=== PATIENT | female | born 1985 | race Hispanic/Latino ===

== ENCOUNTER 2018-11-05 05:15 | Inpatient (IN) | payer SELFPAY ==
[2018-11-05 05:47] VITALS: BMI 30.9
[2018-11-05 06:11] LABS: Amnisure Internal Control QC ACCEPTABLE (ACCEPTABLE)
[2018-11-05 06:13] LABS: Amnisure Test RUPTURE DETECTED (No Rupture)
[2018-11-05] MEDS ORDERED: Lidocaine 1% (PF) 30 ML VIAL SC PRN (06:23)
[2018-11-05] MEDS ORDERED: Diphenoxylate HCl/Atropine Tablet PO PRN ×2 (06:23)
[2018-11-05] MEDS ORDERED: Misoprostol 200 MCG TAB PR PRN (06:23)
[2018-11-05] MEDS ORDERED: Acetaminophen 500 MG TAB PO PRN (06:23)
[2018-11-05] MEDS ORDERED: Carboprost 250 MCG/ML AMP IM PRN (06:23)
[2018-11-05] MEDS ORDERED: Butorphanol Tartrate 1 MG/ML VIAL SLOW IVP PRN (06:23)
[2018-11-05] MEDS ORDERED: Methylergonovine 0.2 MG/ML VIAL IM PRN (06:23)
[2018-11-05] MEDS ORDERED: NS / Oxytocin 40 units/1000ml 1,000 ML IV PRN ×2 (06:23→13:31)
[2018-11-05] MEDS ORDERED: Promethazine HCl 25 MG/ML VIAL IM PRN ×2 (06:23→11:03)
[2018-11-05] MEDS ORDERED: Ondansetron PF 4 MG/2 ML Vial IVP PRN ×2 (06:23→11:03)
[2018-11-05] MEDS ORDERED: NS w/ Oxytocin 10 units 500 ML IV SCH ×2 (06:30)
--- NOTE | 2018-11-05 06:42 | PDOC.FPROB ---
FMR OB H&P: HPI - History of Present Illness Chief Complaint: LOF and contraction Indentification: History of Present Illness: 33YO @ 38 weeks by 13.2 week sono c/w LMP who presented to L&D with a chief complaint of leakage of fluid that she reports woke her from sleep at approximately 0420 today. She reports that she woke up feeling a large amount of fluid leaking from her vagina. She also noticed some thin white discharge and reports irregular, mild contractions. The patient reports regular movement and denies any vaginal bleeding, pain, or pressure and also denies any dysuria, headache, SOB, chest pain or LE edema. Primary Care Physician: OPAL Berrios FMR OB H&P: Current - Care : 4 Para: [id number] Gestational age: 38 weeks Dating Criteria: 13.2 week sono c/w LMP Course/Complications: Anemia in and glucose intolerance - OB Labs Blood type: A RH: positive Antibody Screen: negative HIV: negative RPR: negative HepBsAg: negative Gonorrhea: negative Chlamydia: negative Pap Smear: NILM on 05/23/18 1 hour gtt: 149 3 hour GTT: 117 GBS: negative - First Trimester Ultrasound First trimester: sIUP @ 13.2 weeks gestation - Anatomy Survey Anatomy survey: normal appearing female fetus FMR OB H&P: History - Past Medical History PMH: none - OB History OB History: 3 previous term SVDs - Surgical History Sx History: appendectomy in 1997 & cholecystectomy in 2013 - Social History Social History: No tobacco, EtOH, or drug use. - Family History Family History: Mother- HTN and thyroid disorder Father- thyroid disorder FMR OB H&P: Medications - Current Home Medications: Medication Instructions Recorded Confirmed Type Pnv No.95/Ferrous Fum/Folic AC 1 tab PO DAILY 04/09/15 11/05/18 History [ Tablet] Allergies/Adverse Reactions: Allergies Allergy/AdvReac Type Severity Reaction Status Date / Time No Known Drug Allergies Allergy Verified 04/09/15 19:57 FMR OB H&P: ROS - Review of Systems General: denies: fever/chills Eyes: denies: vision changes, floaters Cardiovascular: denies: chest pain, edema Respiratory: denies: shortness of breath Gastrointestinal: denies: nausea, vomiting Genitourinary (Female): reports: contractions. denies: dysuria, vaginal discharge, vaginal pain, vaginal bleeding, vaginal pressure Neurologic: denies: headache FMR OB H&P: Vital Signs - Maternal Vital signs: Vital Signs - First Documented Temp Pulse Resp BP Pulse Ox 98.3 F 93 18 104/70 99 11/05/18 05:42 11/05/18 05:42 11/05/18 05:42 11/05/18 05:42 11/05/18 05:42 - Heart Tones Baseline: 130 Variability: moderate Acceleration: present Deceleration: absent Category: category 1 [place] contractions every: 3-10 minutes FMR OB H&P: Physical Exam - Physical Exam General: NAD, awake, alert and oriented HEENT: normocephalic and atraumatic, conjunctiva clear, grossly normal vision, grossly normal hearing Neck: supple, FROM Heart: RRR, normal S1/S2, pulses present, no edema General: CTAB, no respiratory distress, good air movement, no rales/rhonchi, no wheezing, no retractions Abdomen: gravid, non-tender Musculoskeletal: pulses present, FROM in all four extremities Neurological: cranial nerves II through XII intact, sensation to pain,touch and proprioception grossly normal, no focal deficit Skin: no rash, good tugor, capillary refill <2 seconds Lymphatic: no unusual bruising or bleeding, no purpura, no petechia Psychiatric: intact recent and remote memory, good judgement and insight, normal mood and affect - Pelvic Exam Vulva: normal hair distribution, appropriate kirill stage SVE: 1/thick/high FMR OB H&P: Results - Labs Lab results: Laboratory Results - last 24 hr 11/05/18 05:53 Amnio Swab Test RUPTURE DETECTED H FMR OB H&P: A/P - Problem List (1) Spontaneous rupture of amniotic membranes Current Visit: Yes Status: Acute Code(s): [id number] - (2) Multigravida in third trimester Current Visit: Yes Status: Acute Code(s): Z34.83 - ENCOUNTER FOR SUPRVSN OF NORMAL , THIRD TRIMESTER Disposition: 33YO @ 38 weeks by a 13.2 week sono c/w LMP who presented to L&D due to suspected ROM with associated contractions. sIUP @ 38 weeks by 13.2 week sono c/w LMP: - Rupture confirmed with amnisure and cephalic presentation confirmed via U/S. - Will admit to L&D for IOL 2/2 SROM. - Will make NPO and start on LR @ 125mL/hr. Anesthesia consult ordered as patient would like an epidural. - Will place 25mcg of cytotec vaginally & will recheck cervix ~3 hours after placement to assess for cervical change and need for a second cytotec vs. starting pitocin. Spontaneous ROM: - Membrane rupture confirmed on exam and with amnisure swab. Anemia in : - Aware, Hgb 11.1 on admission. Will resume PNVs and PO iron PP. Glucose intolerance in : - Aware, 1 hr GTT abnormal but 3hr WNLs. Will encourage healthy diet PP. Discussion: Date/Time: 11/05/1842 This H&P was discussed with [] and [] who agree with the above documentation and plan.
[2018-11-05] MEDS: Lactated Ringer's 1,000 ML IV SCH ×2 (06:48→10:30)
--- NOTE | 2018-11-05 06:53 | PDOC.EVN ---
Event Note - Event Note Event Note: HISTORY AND PHYSICAL Time: 0700 Location: L&D Faculty note: Patient seen and examined. Dr Arambula first to evaluate. Patient of the [facility], Dr Fernando Berrios CC: LOF at 0420 HPI: patient is a 33 yo at 38 weeks with suspected LOF this am while sleeping...clear fluid. No VB, no fevres. Good FM. No other issues. Review of Systems: complete ROS performed and as per HPI Past medical HX: negative Past Surgical HX: negative Past Social HX: negative Allergies: none PHYSICAL: afebile, BP 104/70 90 NAD CX //-2 cephalic clear fluid at perineum cat 1 FHTs [place] with irreg CTX LAB: Amnisure pos Asessment and plan: 1. PROM at 38 weeks, GBS negative: Due to unripened cervix- start with cytptec PVPain meds prn Pitocin if needed 2. GBS neg 3. Notify Dr Berrios
[2018-11-05 07:09] LABS: Hemoglobin 11.1 g/dL (12.0-16.0); Mean Corpuscular HGB CONC 34.1 g/dL (32.0-36.0); Mean Corpuscular Hemoglobin 30.9 pg (27.0-31.0); Mean Corpuscular Volume 90.5 fL (78.0-98.0); Mean Platelet Volume 8.3 fL (7.4-10.4); Platelet Count 216 thou/uL (130-400); RBC Distribution Width 14.4 % (11.5-14.5); White Blood Cell (WBC) Count 8.3 thou/uL (4.8-10.8)
[2018-11-05] MEDS: Misoprostol 100 MCG TAB VAG SCH ×3 (07:33→16:00)
[2018-11-05 07:50] LABS: HBSAg Index 0.25 S/CO (0-0.99); Hep B Surf Ag Non-Reactive S/CO (NonReactive); Syphilis Antibody Nonreactive (Nonreactive); Syphilis Antibody Index 0.02 S/CO (<1.00 Non-Reactive)
[2018-11-05] MEDS ORDERED: Fentanyl 4 mcg/Bup 0.1% Cadd 100 ML ONE (09:53)
[2018-11-05] MEDS ORDERED: Naloxone HCl 0.4 mg/ml Vial IVP PRN ×2 (11:03)
[2018-11-05] MEDS ORDERED: ePHEDrine/0.9% NaCl/PF SYRINGE 50 mg/10 ml SLOW IVP PRN (11:03)
[2018-11-05] MEDS ORDERED: Acetaminophen 325 MG TAB PO PRN (11:03)
[2018-11-05] MEDS ORDERED: diphenhydrAMINE 50 MG/ML VIAL IVP PRN (11:03)
[2018-11-05] MEDS ORDERED: Lactated Ringer's 500 ML IV PRN (11:03)
[2018-11-05] MEDS ORDERED: Bupivacaine/Epinephrine 0.5% 10 ML VIAL ONE (11:11)
[2018-11-05] MEDS ORDERED: Fentanyl 4 mcg/Bupivacaine 0.1% Cassette 100 ML EPIDURAL SCH (11:15)
[2018-11-05] MEDS ORDERED: Communication Order-Pharmacy FS SCH (11:15)
--- NOTE | 2018-11-05 12:04 | PDOC.LDPN ---
Labor & Delivery Progress Note - Subjective Subjective: comfortable - Objective Vital signs reviewed and normal: yes General: NAD Uterine fundus: non tender Dilation: 4 Effacement: 75% Station: -2 FHT: category 1 (baseline 130, no decels, acels present ) [place] contractions every: couplets q4-5 mins - Assessment (1) Multigravida in third trimester Code(s): Z34.83 - ENCOUNTER FOR SUPRVSN OF NORMAL , THIRD TRIMESTER Current Visit: Yes Status: Acute (2) Spontaneous rupture of amniotic membranes Code(s): [id number] - Current Visit: Yes Status: Acute Plan: continue plan of care -: sIUP @ 38 weeks by 13.2 week sono c/w LMP: - cephalic presentation confirmed via U/S. - epidural placed and effective - good contraction pattern, cat1 strip, s/p 1 cytotec, making change - recheck in 2hrs consider pit if no change
--- NOTE | 2018-11-05 13:57 | PDOC.LDPN ---
Labor & Delivery Progress Note - Subjective Subjective: comfortable - Objective Vital signs reviewed and normal: yes Uterine fundus: non tender Dilation: 7 Effacement: 100% Station: -1 FHT: category 2 (baseline 140, good variability, quick recovery from early decels ), early decelerations [place] contractions every: 2-3 mins - Assessment (1) Multigravida in third trimester Code(s): Z34.83 - ENCOUNTER FOR SUPRVSN OF NORMAL , THIRD TRIMESTER Current Visit: Yes Status: Acute (2) Spontaneous rupture of amniotic membranes Code(s): [id number] - Current Visit: Yes Status: Acute Plan: continue plan of care -: sIUP @ 38 weeks by 13.2 week sono c/w LMP: - cephalic presentation confirmed via U/S. - epidural placed and effective - good contraction pattern, cat2 strip d/t early decels, s/p 1 cytotec, making change - recheck in 2hrs consider pit if no change
--- NOTE | 2018-11-05 16:03 | PDOC.OPDEL ---
OB Operative/Delivery Note Delivery Dr/Surgeon: Yash Mcnamara [place] Pre-Delivery Diagnosis: ruptured membrane Procedure/Post Delivery Dx: spontaneous vaginal delivery Weeks gestation: 38 Anesthesia: epidural - Findings A Sex: female - 1 min: 8 - 5 min: 9 - Additional Findings/Plan Placenta delivered: spontaneous Repaired Obstetrical Laceration: none (hemostatic abrasion present) Estimated blood loss: 12 Compilations/Other Findings: 33YO @ 38 weeks who delivered a viable F infant at 1507 on 11/05/18. Following an uneventful antepartum course, a vigorous Female was delivered over an intact perineum in the occipitoanterior position. Anterior Shoulder and then remainder of the body delivered. Nuchal cordx1. The head was held down and mouth and nares were bulb suctioned. Cord clamped, after delayed cord clamping and cut and cord blood collected. Placenta delivered intact in the [place] presentation with a 3 vessel cord noted. Fundal massage was performed and the fundus was firm. The cervix and vagina were inspected and found to be free of lacerations. went to nursery in good condition for routine care. Apgars were 8/9 at 1 & 5 minutes, respectively. Patient tolerated delivery well and went to after routine recovery/care. Post delivery plan: routine recovery Addendum - Attending - Attending Attestation Date/Time: 11/06/18 9510 I personally evaluated the patient and discussed the management with Dr. Johnston I agree with the History, Examination, Assessment and Plan documented above with any addition or exceptions noted below. I was present for the entire 2nd and 3rd stages of labor supervising the delivery and assisted as needed.
[2018-11-05] MEDS ORDERED: Bisacodyl 10 MG SUPP PR PRN (16:51)
[2018-11-05] MEDS ORDERED: Milk Of Magnesia 30 ML UDCUP PO PRN (16:51)
[2018-11-05] MEDS ORDERED: NS / Oxytocin 40 units/1000ml 1,000 ML IV SCH (16:51)
[2018-11-05] MEDS ORDERED: Adacel (T-DAP) 0.5 ML SYRINGE IM ONE (16:51)
[2018-11-05] MEDS: Ferrous Sulfate 325 MG TAB PO SCH (17:57)
[2018-11-05] MEDS: Ibuprofen 800 MG TAB PO SCH (21:43)
[2018-11-05] MEDS: Docusate Calcium (SURFAK) 240 MG CAP PO SCH (21:43)
--- NOTE | 2018-11-06 01:52 | PDOC.OBPPN ---
FMR OB PN: Subj - Interval History Day: 1 Chief Complaint: 33 yo @ 38 wks admitted for SROM now s/p Indentification: Doing well. Mild back pain but overall pain controlled. Passing flatus. Interval History: Urinating. Tolerating normal diet. Minimal bleeding. FMR OB PN: Obj - Maternal Vital signs: 11/06/18 00:21 Temperature 98.1 F Pulse Rate 83 Blood Pressure 101/60 [Semi-Fowlers] Respiratory 16 Rate Oxygen Delivery Room Air Method FMR OB PN: Exam - Physical Exam General: NAD, awake, alert and oriented HEENT: normocephalic and atraumatic, PERRLA Neck: supple, trachea midline Heart: RRR, normal S1/S2, no murmurs/rubs/gallops General: CTAB, no respiratory distress Abdomen: soft, fundus(cm) (firm) Skin: no rash, good tugor : appropriately tender Lymphatic: no unusual bruising or bleeding, no purpura, no petechia Psychiatric: intact recent and remote memory - Pelvic Exam : normal lochia FMR OB PN: Data - Labs Lab results: Laboratory Results - last 24 hr 11/05/18 11/05/18 11/05/18 05:53 06:56 06:56 WBC RBC Hgb Hct MCV MCH MCHC RDW Plt Count MPV Amnio Swab Test RUPTURE DETECTED H Syphilis IgG/IgM Ab Nonreactive Hep Bs Antigen Non-Reactive Blood Type Antibody Screen 11/05/18 11/05/18 06:56 06:56 WBC 8.3 RBC 3.60 L Hgb 11.1 L Hct 32.6 L MCV 90.5 MCH 30.9 MCHC 34.1 RDW 14.4 Plt Count 216 MPV 8.3 Amnio Swab Test Syphilis IgG/IgM Ab Hep Bs Antigen Blood Type A POSITIVE Antibody Screen NEGATIVE FMR OB PN: A/P - Problem List (1) (normal spontaneous vaginal delivery) Current Visit: Yes Status: Acute Code(s): O80 - ENCOUNTER FOR FULL-TERM UNCOMPLICATED DELIVERY (2) Multigravida in third trimester Current Visit: Yes Status: Acute Code(s): Z34.83 - ENCOUNTER FOR SUPRVSN OF NORMAL , THIRD TRIMESTER (3) Spontaneous rupture of amniotic membranes Current Visit: Yes Status: Acute Code(s): [id number] - (4) care following vaginal delivery Current Visit: No Status: Acute Code(s): Z39.2 - ENCOUNTER FOR ROUTINE FOLLOW-UP Comment: Doing well. H/H appropriate. D/c home today after tolerating lunch and more ambulating in halls. Will follow up with PNC. No apt made yet. Discussion: Date/Time: 11/06/18 0150 33 yo @ 38wks admitted for SROM s/p to a TAGA female. #sIUP, delivered -continue routine care -ibuprofen 800mg q8h lance, tylenol prn pain -monitor I/O's, encourage ambulation -ok for early dc >24 hours if pt desires Irving Ken MD, PGY-2 Addendum - Attending - Attending Attestation Date/Time: 11/06/18 0859 I personally evaluated the patient and discussed the management with Dr. Ken I agree with the History, Examination, Assessment and Plan documented above with any addition or exceptions noted below. I have personally seen pt. SHe is doing well and has no complaints. vital signs wnl. We discussed followup care with pnc in two weeks and answered any questions.
[2018-11-06] MEDS: Ibuprofen 800 MG TAB PO SCH ×2 (06:36→14:28)
[2018-11-06] MEDS: Ferrous Sulfate 325 MG TAB PO SCH ×2 (07:47→17:20)
[2018-11-06] MEDS: Docusate Calcium (SURFAK) 240 MG CAP PO SCH (09:32)
[2018-11-06 17:06] VITALS: BP 103/64; TEMP 97.8
== END 2018-11-06 17:45 | disposition home or self-care (01) | DRG 807 ==
LOC: L&D/OP 05:15 → L&D 06:22 → 3SW 16:34
PROVIDERS: ADMIT Obstetrics & Gynecology; ATTEND Obstetrics & Gynecology
PROC: 10E0XZZ Delivery of Products of Conception, External Approach (ICD-10-PCS; principal; 2018-11-05)
DX: O42.92 Full-term premature rupture of membranes, unspecified as to length of time between rupture and onset of labor (principal); Z37.0 Single live birth; O99.02 Anemia complicating childbirth; D64.9 Anemia, unspecified; O99.814 Abnormal glucose complicating childbirth; O69.81X0 Labor and delivery complicated by cord around neck, without compression, not applicable or unspecified; Z3A.38 38 weeks gestation of pregnancy
CPT/HCPCS: 36415; 51702; 84112; 85027; 86780; 86850; 86900; 86901; 87340; 90715; 99285; J2001; J3490

== ENCOUNTER 2020-03-12 19:30 | Emergency (ER) | payer MEDICAID, SELFPAY ==
[2020-03-12] MEDS ORDERED: Acetaminophen 325 MG TAB ONE (20:11)
[2020-03-12] MEDS ORDERED: Ibuprofen 800 MG TAB ONE (20:11)
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
== END 2020-03-12 21:00 | disposition home or self-care (01) ==
LOC: ERS 19:30
DX: S20.219A Contusion of unspecified front wall of thorax, initial encounter (principal); V49.9XXA Car occupant (driver) (passenger) injured in unspecified traffic accident, initial encounter
CPT/HCPCS: 71046; 94760